=== PATIENT | male | born 1940 | race Caucasian/White ===

== ENCOUNTER 2020-01-10 14:25 | Emergency (ER) | payer MEDICARE ==
[~2020-01-10] VITALS: Ht 177.8 cm; Wt 97.0 kg
[2020-01-10] MEDS ORDERED: ATOR40TA28 PO (14:34)
[2020-01-10] MEDS ORDERED: FINA1TAB17 PO (14:34)
[2020-01-10] MEDS ORDERED: INSU100V42 SQ (14:34)
[2020-01-10] MEDS ORDERED: VALS160T2 PO (14:34)
[2020-01-10] MEDS ORDERED: HYDR-1475 PO (14:34)
[2020-01-10] MEDS ORDERED: GABA-531 PO (14:34)
[2020-01-10] MEDS ORDERED: ASPI81TA40 PO (14:34)
[2020-01-10] MEDS ORDERED: FERR-89 PO (14:34)
[2020-01-10] MEDS ORDERED: DULO60CA44 PO (14:34)
[2020-01-10] MEDS ORDERED: TAMS-13 PO (14:34)
[2020-01-10] MEDS ORDERED: METO25 PO (14:34)
[2020-01-10] MEDS ORDERED: FAMO20 PO (14:34)
[2020-01-10] MEDS ORDERED: ZALE5CAP6 PO (14:34)
[2020-01-10] MEDS ORDERED: FINA-27 PO (14:40)
[2020-01-10 15:10] LABS: GLUCOSE,POINT OF CARE 135 MG/DL (70-110)
[2020-01-10 15:13] LABS: BASOPHILS % (AUTO) 0.8 % (0.0-2.0); EOSINOPHILS % (AUTO) 5.3 % (1.0-6.0); HEMATOCRIT 34.2 % (41-53); HEMOGLOBIN 11.5 g/dL (13.5-17.5); LYMPHOCYTES # (AUTO) 1.4 K/uL (1.0-4.8); LYMPHOCYTES % (AUTO) 21.6 % (22.0-44.0); MEAN CORPUSCULAR HEMOGLOBIN 33.4 pg (26.0-34.0); MEAN CORPUSCULAR HGB CONC 33.6 G/dL (31.0-37.0); MEAN CORPUSCULAR VOLUME 99 fL (80-100); MONOCYTES # (AUTO) 0.6 K/uL (0.1-1.0); MONOCYTES % (AUTO) 9.9 % (2.0-9.0); NEUTROPHILS # (AUTO) 3.9 K/uL (1.8-7.7); NEUTROPHILS % (AUTO) 62.4 % (40.0-70.0); PLATELET COUNT (AUTO) 322 K/uL (150-450); RED BLOOD CELL COUNT(AUTO) 3.44 MIL/uL (4.50-5.90); RED CELL DISTRIBUTION WIDTH 13.4 % (11.5-14.5)
[2020-01-10 15:28] LABS: CREATININE 1.47 mg/dL (0.60-1.30); POTASSIUM 4.4 mmol/L (3.5-5.1)
[2020-01-10 15:30] LABS: INR 1.1 (0.9-1.1); PROTHROMBIN TIME 10.9 SEC (9.4-11.6)
[2020-01-10 15:34] LABS: ALBUMIN 3.2 g/dL (3.4-5.0); BILIRUBIN,TOTAL 0.3 mg/dL (0.1-1.0); TOTAL PROTEIN, SERUM 7.1 g/dL (6.4-8.2)
[2020-01-10 17:50] LABS: APPEARANCE,URINE CLEAR (CLEAR); BILIRUBIN,URINE NEGATIVE (NEGATIVE); GLUCOSE, URINE (UA) NEGATIVE (NEGATIVE); KETONES,URINE NEGATIVE (NEGATIVE); LEUKOCYTE ESTERASE ,URINE NEGATIVE (NEGATIVE); NITRATE,URINE NEGATIVE (NEGATIVE); OCCULT BLOOD,URINE NEGATIVE (NEGATIVE); PH,URINE 5.5 (5.0-8.0); PROTEIN,URINE NEGATIVE (NEGATIVE); UROBILINOGEN,URINE 0.2 mg/dL (<=1.0)
[2020-01-10 18:25] VITALS: BP 140/75
== END 2020-01-10 18:27 | disposition home or self-care (01) ==
LOC: EMS 14:27
DX: R42 Dizziness and giddiness (principal); E11.9 Type 2 diabetes mellitus without complications; I10 Essential (primary) hypertension; Z79.82 Long term (current) use of aspirin; Z79.4 Long term (current) use of insulin
CPT/HCPCS: 70450; 70551; 93005

== ENCOUNTER 2023-07-17 07:13 | Inpatient (IN) | payer MEDICARE, MEDICAID ==
[~2023-07-17] VITALS: Ht 172.7 cm; Wt 85.9 kg
[~2023-07-17 07:13] MED LIST: ASPI81TA40 PO; ATOR40TA28 PO; DULO-113 PO; FAMO20 PO; FERR325T27 PO; FINA-27 PO; GABA-1181 PO; HYDR25TA2 PO; INSU100V42 SQ; METO25 PO; SODIUM CHLORIDE 0.9% 1,000 ML IV ONE; TAMS-13 PO; VALS160T2 PO; ZALE5CAP6 PO
[2023-07-17] MEDS ORDERED: SODIUM CHLORIDE 0.9% 1,000 ML ONE (07:49)
[2023-07-17 08:00] LABS: BASOPHILS % (AUTO) 0.2 % (0.0-2.0); HEMATOCRIT 35.5 % (41-53); HEMOGLOBIN 11.9 g/dL (13.5-17.5); LYMPHOCYTES # (AUTO) 1.1 K/uL (1.0-4.8); LYMPHOCYTES % (AUTO) 18.4 % (22.0-44.0); MEAN CORPUSCULAR HEMOGLOBIN 33.7 pg (26.0-34.0); MEAN CORPUSCULAR HGB CONC 33.6 G/dL (31.0-37.0); MEAN CORPUSCULAR VOLUME 100 fL (80-100); MONOCYTES # (AUTO) 0.5 K/uL (0.1-1.0); NEUTROPHILS # (AUTO) 4.2 K/uL (1.8-7.7); NEUTROPHILS % (AUTO) 69.4 % (40.0-70.0); PLATELET COUNT (AUTO) 192 K/uL (150-450); RED BLOOD CELL COUNT(AUTO) 3.55 MIL/uL (4.50-5.90); RED CELL DISTRIBUTION WIDTH 15.1 % (11.5-14.5)
[2023-07-17] MEDS ORDERED: RANO500T27 PO (08:02)
[2023-07-17] MEDS ORDERED: LOSA-381 PO (08:02)
[2023-07-17] MEDS ORDERED: FURO20TA4 PO (08:02)
[2023-07-17] MEDS ORDERED: RIVA2.5T3 PO (08:02)
[2023-07-17] MEDS ORDERED: TAMS-13 PO (08:02)
[2023-07-17] MEDS ORDERED: ISOS30TA92 PO (08:02)
[2023-07-17] MEDS ORDERED: MEMA10TA11 PO (08:02)
[2023-07-17 08:04] LABS: CALCIUM, TOTAL 8.8 mg/dL (8.8-10.5); CREATININE 1.35 mg/dL (0.60-1.30); POTASSIUM 4.5 mmol/L (3.5-5.1)
[2023-07-17 08:08] LABS: INR 1.2 (0.9-1.1); PROTHROMBIN TIME 12.3 SEC (9.4-11.6)
[2023-07-17 08:10] LABS: ALBUMIN 3.5 g/dL (3.4-5.0); BILIRUBIN,TOTAL 0.5 mg/dL (0.1-1.0); TOTAL PROTEIN, SERUM 6.4 g/dL (6.4-8.2)
[2023-07-17 08:56] LABS: GLUCOMETER DEV NAME(LOC) SDS.
[2023-07-17] MEDS ORDERED: MIDAZOLAM HCL 2 MG/2 ML VIAL ONE (11:13)
[2023-07-17] MEDS ORDERED: FentaNYL CITRATE PF 100 MCG/2 ML VIAL ONE (11:13)
[2023-07-17] MEDS ORDERED: IOHEXOL 300 MG/ML 50 ML VIAL ONE (11:16)
[2023-07-17] MEDS ORDERED: CeFAZolin SODIUM 1 GM VIAL ONE (11:16)
[2023-07-17] MEDS ORDERED: LIDOCAINE/PF 1% 30 ML VIAL ONE (11:31)
[2023-07-17] MEDS ORDERED: MIDAZOLAM HCL 2 MG/2 ML VIAL IVP ONE ×3 (12:00→12:15)
[2023-07-17] MEDS ORDERED: LIDOCAINE 1% 30 ML/SOD BICARB 8.4% 4 ML SQ ONE (12:00)
[2023-07-17] MEDS ORDERED: FentaNYL CITRATE PF 100 MCG/2 ML VIAL IVP ONE ×3 (12:00→12:15)
[2023-07-17] MEDS ORDERED: CeFAZolin SODIUM 1 GM VIAL IVP ONE (12:00)
[2023-07-17] MEDS ORDERED: IOHEXOL 300 MG/ML 50 ML VIAL IVP ONE (12:00)
[2023-07-17] MEDS ORDERED: CeFAZolin SODIUM 1 GM VIAL IRRIG ONE (12:00)
[2023-07-17] MEDS ORDERED: INSULIN LISPRO 100 UNITS/ML SQ PRN (13:00)
[2023-07-17] MEDS ORDERED: ZALEPLON 5 MG CAPSULE PO PRN (13:00)
[2023-07-17] MEDS ORDERED: ACETAMINOPHEN 325 MG TABLET PO PRN (13:00)
[2023-07-17] MEDS ORDERED: DEXTROSE 50%-WATER 25 GM/50 ML SYRINGE IVP PRN (13:00)
[2023-07-17 14:32] VITALS: BP 152/74; PULSE 65; RESP 18; TEMP 98
[2023-07-17 16:29] VITALS: BP 148/60; PULSE 62; RESP 18; TEMP 98
[2023-07-17 17:41] LABS: GLUCOMETER DEV NAME(LOC) 5S.1B
[2023-07-17] MEDS ORDERED: SODIUM CHLORIDE 0.9% 250 ML IV ONE (17:49)
[2023-07-17] MEDS: CeFAZolin 1 GM/DEXTROSE 50 ML IV SCH (18:03)
[2023-07-17] MEDS ORDERED: ACETAMINOPHEN 500 MG TABLET PO PRN (19:00)
[2023-07-17 20:00] VITALS: BP 140/76; PULSE 76; RESP 19; TEMP 98.7
[2023-07-17] MEDS ORDERED: ATORVASTATIN CALCIUM 40 MG TABLET PO SCH (21:00)
[2023-07-17] MEDS: FAMOTIDINE 20 MG TABLET PO SCH (21:01)
[2023-07-17] MEDS: GABAPENTIN 300 MG CAPSULE PO SCH (21:01)
[2023-07-18] MEDS: CeFAZolin 1 GM/DEXTROSE 50 ML IV SCH ×2 (00:07→06:36)
[2023-07-18 00:19] VITALS: BP 151/72; PULSE 73; RESP 19; TEMP 98.5
[2023-07-18 03:13] VITALS: BP 126/63; PULSE 70; RESP 20; TEMP 98
[2023-07-18 03:46] LABS: GLUCOMETER DEV NAME(LOC) 5N.1C
[2023-07-18 06:46] LABS: GLUCOMETER DEV NAME(LOC) 5S.1B
[2023-07-18] MEDS ORDERED: ASPIRIN 81 MG CHEWABLE TABLET PO SCH (08:00)
[2023-07-18 08:12] VITALS: BP 152/76; PULSE 67; RESP 17; TEMP 97.9
[2023-07-18] MEDS ORDERED: ISOSORBIDE MONONITRATE 30 MG ER TABLET PO SCH (09:00)
[2023-07-18] MEDS ORDERED: LOSARTAN POTASSIUM 25 MG TABLET PO SCH (09:00)
[2023-07-18] MEDS ORDERED: FINASTERIDE 5 MG TABLET PO SCH (09:00)
[2023-07-18] MEDS ORDERED: DULoxetine HCL 60 MG CAPSULE PO SCH (09:00)
[2023-07-18] MEDS ORDERED: METOPROLOL TARTRATE 25 MG TABLET PO SCH (09:00)
[2023-07-18] MEDS ORDERED: VALSARTAN 160 MG TABLET PO SCH (09:00)
[2023-07-18] MEDS: FAMOTIDINE 20 MG TABLET PO SCH (10:14)
[2023-07-18] MEDS: GABAPENTIN 300 MG CAPSULE PO SCH (10:14)
[2023-07-18 11:29] VITALS: BP 141/80; PULSE 64; RESP 19; TEMP 97.8
[2023-07-18 18:52] LABS: GLUCOMETER DEV NAME(LOC) 5S.2C
== END 2023-07-18 14:00 | disposition home or self-care (01) | DRG 244 ==
LOC: SURGERY 07:13 → 5S 07:14
PROVIDERS: ADMIT Internal Medicine Cardiovascular Disease; ATTEND Internal Medicine Cardiovascular Disease
PROC: 0JH806Z Insertion of Pacemaker, Dual Chamber into Abdomen Subcutaneous Tissue and Fascia, Open Approach (ICD-10-PCS; principal; 2023-07-17)
PROC: 02H60JZ Insertion of Pacemaker Lead into Right Atrium, Open Approach (ICD-10-PCS; 2023-07-17)
PROC: 02HK0JZ Insertion of Pacemaker Lead into Right Ventricle, Open Approach (ICD-10-PCS; 2023-07-17)
DX: I49.5 Sick sinus syndrome (principal); I10 Essential (primary) hypertension
CPT/HCPCS: 33208; 71045; 71046; 76000; 80053; 82962; 85025; 85610; 85730; 93005; J0690; J2250; J3010; J3490; J7030; J7050; Q9967; 36415-L1; 36415-TC